=== PATIENT | female | born 2000 | race Caucasian/White ===

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

== ENCOUNTER → 2018-02-27 | Outpatient (CLI) | payer OTHER ==
--- NOTE | 2018-03-14 19:14 | EEG ---
[address] [address] EEG STUDY REPORT Name: ASHLEE MINER Room: [facility]#: [id number] Admission: 02/27/18 Attend Phys: Fred Dolan MD Discharge: Date of : 89 Report #: [id number] THIS REPORT FOR: //name// CC: Fred ARNOLD FELICIA Gandara Lauren DATE OF SERVICE: 02/27/2018 This patient is being evaluated for episode where she forgets things. The patient's EEG was done by placing the electrode by standard 10-20 system of electrode placement. Both referential and sequential montages were used for recording. Background activity in this patient's EEG is about 11 Hz and 60 microvolt. It is a symmetrical activity. If patient goes to sleep, that is associated with bilateral slowing and vertex sharp waves. Photic stimulation is unremarkable. Throughout the record, no active epileptiform activity was noticed. IMPRESSION: This patient's EEG is within normal limit. Thank you very much for this referral. <ELECTRONICALLY SIGNED> By: Fred Dolan MD 03/14/18 [id number] Dolan MD /nt
== END ==
LOC: M.CRD 14:27
DX: R41.3 Other amnesia (principal)